=== PATIENT | male | born 1935 | race Caucasian/White ===

== ENCOUNTER 2017-02-03 10:12 | Inpatient (IN) | payer OTHER, BC ==
[~2017-02-03] VITALS: Ht 180.3 cm; Wt 71.1 kg
--- NOTE | ~2017-02-03 | D ---
[facility] [place] [address] DISCHARGE SUMMARY Name: FABIEN HSIEH Room #: 305-P ADM IN M.R.#: [id number] Admission: 02/03/17 Attend Phys: Omari Chi MD Discharge: Date of : 37 Report #: [id number] THIS REPORT FOR: //name// CC: Omari Cowartore Joi DATE OF SERVICE: 02/04/2017 DATE OF ADMISSION: 02/03/2017. DATE OF DISCHARGE: 02/04/2017. DISCHARGE CONDITION: Stable. DISCHARGE DISPOSITION: Pending rehab evaluation. DISCHARGE DIAGNOSES: 1. Dementia. 2. Fall in the setting of dementia. 3. Leukocytosis, possibly mild dehydration. CONSULTATIONS WHILE INPATIENT: None. PROCEDURES AND TESTS: Head CT pelvis, chest x-ray without concerning acute abnormalities. PHYSICAL EXAMINATION: VITAL SIGNS: On day of discharge, patient is afebrile, pulse , respiratory rate 18, O2 sat 96% on room air, blood pressure 133/67. GENERAL: Awake, alert, no acute distress. HEENT: Unremarkable. NECK: No JVD or thyromegaly. HEART: S1, S2 present. entry present bilaterally. ABDOMEN: Soft, nontender. EXTREMITIES: Without edema. NEUROLOGIC: Awake, alert, no obvious focal findings. SKIN: Unremarkable for rash or lesions. LABORATORY DATA: Repeat labs pending at time of this dictation. BRIEF INPATIENT COURSE: The patient is an 81-year-old gentleman with underlying dementia who presented with falls at home as well as difficulty ambulating and moving, his workup while inpatient has showed a mild leukocytosis, but is otherwise unremarkable. There are no acute signs of infection. This is felt to be most likely from mild dehydration. He has been hydrated well inpatient and by the day of his discharge, he has no ongoing complaints or focal signs. He [facility] [address] [place] [address] DISCHARGE SUMMARY Name: FABIEN HSIEH Room #: 305-P [facility]#: [id number] Admission: 02/03/17 Attend Phys: Omari Chi MD Discharge: Date of : 37 Report #: [id number] will be evaluated by physical and occupational therapy and discharge per their recommendations. He is otherwise doing and feeling well. I have discussed his care and condition with him in detail and spent 20 minutes in the discharge process for this patient. <ELECTRONICALLY SIGNED> By: Elmo Young MD 02/04/17 1346 [id number] Elmo Young MD /nt
--- NOTE | ~2017-02-03 | EKG ---
[address] [address] ELECTROCARDIOGRAM REPORT Name: FABIEN HSIEH Room #: 305-P ADM IN M.R.#: [id number] Admission: 02/03/17 Attend Phys: Omari Chi MD Discharge: Date of : 37 Report #: [id number] THIS REPORT FOR: //name// [facility] ED Test Date: 2017-02-03 Test Time: 10:35:08 Pat Name: FABIEN HSIEH Department: Room: 305 Gender: M [employer]: adarsh : 1935 Requested By: Pina Quiroga Order Number: [id number] MD: Bin Amin Measurements Intervals [place] Rate: 81 P: 56 DC: 178 QRS: 5 QRSD: 121 T: -3 QT: 405 QTc: 470 Interpretive Statements Sinus rhythm Inferior infarct, old Nonspecific ST segment abnormality Compared to ECG 09/18/2016 15:08:21 Intraventricular conduction delay now present ST (T wave) deviation now present Sinus tachycardia no longer present Electronically Signed On 02-04-2017 7:52:29 CDT by Bin Amin [email or web address] <ELECTRONICALLY SIGNED> By: Bin Amin MD, [facility] 02/04/17 [id number] [id number] 1035 Bin Amin MD, [facility] /EPI
[~2017-02-03 10:12] MED LIST: ARICEPT 5 MG TAB5 MG PO; ARICEPT10 M1 PO; ASPIR 8181 M1 PO; ASPIR 8181 MG PO; CALCIUM 500 +1 EAC5 PO; CENTRUM SILVER1 EAC4 PO; CITRACAL-VIT D1 EACH PO; DUONEB 2.5-0.5 M3 ML; FLOMAX0.4 MG PO; FOLIC ACID1 MG PO; HYDROCODON-ACE1 EAC7 PO; HYDROXYCHLOROQ200 M1 PO; IRON325 PO; LEVAQUIN 500 M500 M2 PO; LEVAQUIN 750 M750 MG PO; LIPITOR10 MG PO; LOPRESSOR25 PO; LOPRESSOR50 PO; METHOTREXATE 22.5 M1 PO; MOBIC15 MG PO; MUCINEX TA600 MG/TA2 PO; NAMENDA 10 MG T10 MG PO; NITROGLYCERIN0.4 MG SUBLING; ONDANSETRON HCL4 M2 PO; PLAVIX 75 MG TA75 M1 PO; RECLAST 55 MG/100 M IV; TAMIFLU75 MG PO; TYLENOL W/CODEI1 TA2 PO; TYLENOL325 MG PO; VITAMINC500 PO
[2017-02-03 10:16] VITALS: BP 137/75
[2017-02-03 10:48] LABS: ABSOLUTE NEUTROPHILS 11.9 thou/uL (1.4-8.2); BASOPHILS 0.6 % (0.0-2.0); EOSINOPHILS 0.3 % (0.0-3.0); HEMATOCRIT 39.6 % (42.0-52.0); HEMOGLOBIN 13.1 gm/dL (14.0-18.0); LYMPHOCYTES 15.6 % (24.0-44.0); MCHC 33.1 g/dL (28.0-37.0); MCV 96.5 fL (80.0-100.0); MONOCYTES 5.6 % (1.0-8.0); PLATELET COUNT 207 thou/uL (150-400); POLYS 77.9 % (36.0-66.0); RBC 4.11 mil/uL (4.50-6.00); RDW 14.1 % (10.5-14.5); WBC 15.2 thou/uL (4.0-11.0)
[2017-02-03 10:50] LABS: MANUAL DIFF NO
[2017-02-03 10:54] LABS: CALCIUM 9.3 mg/dL (8.5-10.1); CREATININE 0.7 mg/dL (0.7-1.3); POTASSIUM 3.7 mmol/L (3.5-5.1)
[2017-02-03 12:12] LABS: URINE BLOOD NEGATIVE (Negative); URINE COLOR YELLOW; URINE GLUCOSE-RANDOM* NEGATIVE (Negative); URINE KETONES 3+ (Negative); URINE NITRITE NEGATIVE (Negative); URINE PROTEIN (DIPSTICK) NEGATIVE (Negative); URINE SPECIFIC GRAVITY >= 1.030 (1.003-1.035); URINE UROBILINOGEN 0.2 E.U./dl (0.2-1.0)
[2017-02-03 12:20] LABS: ICTOTEST (BILI CONFIRMATORY) Negative (Negative); URINE BILIRUBIN NEGATIVE (Negative)
[2017-02-03 13:29] VITALS: BP 144/82
[2017-02-03 15:29] VITALS: BP 121/73
[2017-02-03 16:20] LABS: FOLIC ACID 19.8 ng/mL (8.6-58.9); TSH 0.91 uIU/mL (0.358-3.740)
[2017-02-03 20:00] VITALS: BP 114/63
[2017-02-04] VITALS: BP 138/67
[2017-02-04 04:00] VITALS: BP 142/70
[2017-02-04 05:56] LABS: ALBUMIN 3.1 g/dL (3.4-5.0); CALCIUM 8.8 mg/dL (8.5-10.1); CREATININE 0.8 mg/dL (0.7-1.3); MAGNESIUM 1.6 mg/dL (1.8-2.4); POTASSIUM 3.6 mmol/L (3.5-5.1); TOTAL BILIRUBIN 0.6 mg/dL (<0.1-1.0); TOTAL PROTEIN 6.3 g/dL (6.4-8.2)
[2017-02-04 07:36] VITALS: BP 133/67
[2017-02-04 10:03] LABS: HEMATOCRIT 36.3 % (42.0-52.0); HEMOGLOBIN 12.2 gm/dL (14.0-18.0); MCH 32.3 pg (26.0-34.0); MCHC 33.6 g/dL (28.0-37.0); MCV 96.1 fL (80.0-100.0); RBC 3.78 mil/uL (4.50-6.00); RDW 13.9 % (10.5-14.5); WBC 10.8 thou/uL (4.0-11.0)
[2017-02-04 15:54] VITALS: BP 108/57
[2017-02-04 20:00] VITALS: BP 136/68
[2017-02-05 07:16] VITALS: BP 113/65
[2017-02-05 15:08] VITALS: BP 101/59
[2017-02-05 19:30] VITALS: BP 124/62
[2017-02-06 04:34] VITALS: BP 135/64
[2017-02-06 07:33] VITALS: BP 150/77
[2017-02-06 10:27] VITALS: BP 150/77
== END 2017-02-06 12:20 | DRG 558 ==
LOC: ER 10:12 → EROBS 12:18 → 3N 12:18
PROVIDERS: Emergency Medicine; Hospitalist; Nurse Practitioner
DX: M62.82 Rhabdomyolysis (principal); M06.9 Rheumatoid arthritis, unspecified; F03.90 Unspecified dementia, unspecified severity, without behavioral disturbance, psychotic disturbance, mood disturbance, and anxiety; I25.10 Atherosclerotic heart disease of native coronary artery without angina pectoris; D72.829 Elevated white blood cell count, unspecified; Z95.5 Presence of coronary angioplasty implant and graft; Z88.0 Allergy status to penicillin; Z98.49 Cataract extraction status, unspecified eye; Z90.49 Acquired absence of other specified parts of digestive tract; Z87.891 Personal history of nicotine dependence; W18.39XA Other fall on same level, initial encounter; Y93.89 Activity, other specified; Y92.098 Other place in other non-institutional residence as the place of occurrence of the external cause; Y99.8 Other external cause status
CPT/HCPCS: 10096